=== PATIENT | female | born 1960 | race Caucasian/White ===

== ENCOUNTER 2017-02-16 11:24 | Inpatient (IN) | payer MEDICAID ==
[~2017-02-16] VITALS: Ht 165.1 cm; Wt 183.3 kg
[2017-02-16] MEDS ORDERED: SODIUM CHLORIDE 0.9% 1,000 ML IV ONE (12:17)
[2017-02-16] MEDS ORDERED: methylPREDNISolone SOD SUCC 125 MG/2 ML VL IV ONE (12:30)
[2017-02-16] MEDS ORDERED: IPRATROPIUM BROM 0.5 MG/2.5ML INH SOL HHN ONE (12:30)
[2017-02-16] MEDS ORDERED: LEVOFLOXACIN 500MG 100 ML IV ONE (12:30)
[2017-02-16] MEDS ORDERED: ALBUTEROL SULF 2.5 MG/0.5ML(0.5%) NEB SOLN HHN ONE (12:30)
[2017-02-16 13:09] LABS: Basophils # (auto) 0.1 uL; Basophils % (auto) 0.5 % (0.0-2.0); Eosinophils # (auto) 0 uL; Eosinophils % (auto) 0.2 % (0.0-7.0); Hematocrit 41.5 % (36.0-46.0); Hemoglobin 13.9 g/dL (12.2-16.2); Lymphocytes # (auto) 0.3 uL; Lymphocytes % (auto) 2.8 % (10.0-50.0); Mean Corpuscular Hemoglobin 30.5 pg (28.0-32.0); Mean Corpuscular Hgb Conc. 33.6 g/dL (32.0-36.0); Mean Corpuscular Volume 90.9 fL (80.0-100.0); Monocytes # (auto) 0.9 uL; Neutrophils # (auto) 9.7 uL; Neutrophils % (auto) 88.5 % (37.0-80.0); Platelet Count (auto) 300 10^3/uL (140-450); Red Blood Cells 4.56 10^6/uL (4.0-5.20); Red Cell Distribution Width 13.9 % (11.8-14.3); White Blood Cell 10.9 10^3/uL (4.4-10.8)
[2017-02-16 13:14] LABS: Albumin 3.8 g/dL (3.4-5.0); BUN/Creatinine Ratio 14.4; Bilirubin, Total 0.5 mg/dL (0.2-1.0); Calcium 8.8 mg/dL (8.5-10.1); Potassium 3.6 mmol/L (3.5-5.1); Total Protein 7.9 g/dL (6.4-8.2)
[2017-02-16] MEDS ORDERED: NAPR500T31 PO (14:12)
[2017-02-16] MEDS ORDERED: LEVO150T68 PO (14:12)
[2017-02-16] MEDS ORDERED: ASPI81CH43 PO (14:12)
[2017-02-16] MEDS ORDERED: LISI-706 PO (14:12)
[2017-02-16] MEDS ORDERED: ATOR40TA52 PO (14:12)
[2017-02-16] MEDS ORDERED: FURO40TA PO (14:13)
[2017-02-16] MEDS ORDERED: POTA10TA34 PO (14:13)
[2017-02-16] MEDS ORDERED: CYCL1TAB18 PO (14:13)
[2017-02-16] MEDS ORDERED: OSELTAMIVIR 75 MG CAP PO ONE (14:15)
[2017-02-16] MEDS ORDERED: LORazepam 0.5 MG TAB PO PRN (14:15)
[2017-02-16] MEDS ORDERED: LACTULOSE 20Gm/30ML SOLN PO PRN (14:15)
[2017-02-16] MEDS ORDERED: TEMAZEPAM 15 MG CAP PO PRN (14:15)
[2017-02-16] MEDS ORDERED: MORPHINE SULF INJ 2 MG/ML SYRINGE 1ML IV PRN (14:15)
[2017-02-16] MEDS ORDERED: ACETAMINOPHEN 500 MG TAB PO PRN (14:15)
[2017-02-16] MEDS ORDERED: NITROGLYCERIN 0.4 MG SL TAB SL PRN (14:15)
[2017-02-16] MEDS ORDERED: ALBUTEROL SULF 2.5 MG/0.5ML(0.5%) NEB SOLN NEB PRN (14:15)
[2017-02-16] MEDS ORDERED: MORPHINE SULFATE 4 MG/ML SYR/VIAL IV PRN (14:15)
[2017-02-16] MEDS ORDERED: PROMETHAZINE HCL 25 MG/ML 1ML IV PRN (14:15)
[2017-02-16] MEDS ORDERED: HYDROcodone-ACET 5/325MG TAB PO PRN (14:15)
[2017-02-16] MEDS: METOPROLOL TARTRATE 25 MG TAB PO SCH ×2 (14:54→23:05)
[2017-02-16] MEDS: SODIUM CHLORIDE 0.9% 1,000 ML IV SCH (14:54)
[2017-02-16] MEDS: ENOXAPARIN SOD 40 MG/0.4 ML SYRINGE SC SCH (14:55)
[2017-02-16] MEDS: ALBUTEROL SULF 2.5 MG/0.5ML(0.5%) NEB SOLN NEB SCH (18:00)
[2017-02-16] MEDS: IPRATROPIUM BROM 0.5 MG/2.5ML INH SOL NEB SCH (18:00)
[2017-02-16 22:00] VITALS: BP 133/65
[2017-02-16] MEDS: OSELTAMIVIR 75 MG CAP PO SCH (22:10)
[2017-02-16] MEDS: FAMOTIDINE 20 MG TAB PO SCH (22:10)
[2017-02-17] MEDS: ALBUTEROL SULF 2.5 MG/0.5ML(0.5%) NEB SOLN NEB SCH ×4 (01:04→20:07)
[2017-02-17] MEDS: IPRATROPIUM BROM 0.5 MG/2.5ML INH SOL NEB SCH ×4 (01:04→20:07)
[2017-02-17 03:16] VITALS: BP 133/65
[2017-02-17 04:40] VITALS: BP 104/62
[2017-02-17] MEDS: SODIUM CHLORIDE 0.9% 1,000 ML IV SCH (05:00)
[2017-02-17 08:01] LABS: Basophils # (auto) 0 uL; Basophils % (auto) 0.1 % (0.0-2.0); Eosinophils # (auto) 0 uL; Hematocrit 39.9 % (36.0-46.0); Hemoglobin 13.4 g/dL (12.2-16.2); Lymphocytes # (auto) 0.4 uL; Mean Corpuscular Hemoglobin 30.6 pg (28.0-32.0); Mean Corpuscular Hgb Conc. 33.5 g/dL (32.0-36.0); Mean Corpuscular Volume 91.4 fL (80.0-100.0); Monocytes # (auto) 0.2 uL; Monocytes % (auto) 2.6 % (0.0-12.0); Neutrophils # (auto) 7.7 uL; Neutrophils % (auto) 92.3 % (37.0-80.0); Platelet Count (auto) 271 10^3/uL (140-450); Red Blood Cells 4.37 10^6/uL (4.0-5.20); White Blood Cell 8.3 10^3/uL (4.4-10.8)
[2017-02-17 08:27] LABS: Albumin 3.4 g/dL (3.4-5.0); BUN/Creatinine Ratio 22.3; Bilirubin, Total 0.6 mg/dL (0.2-1.0); Calcium 8.9 mg/dL (8.5-10.1); Potassium 4.1 mmol/L (3.5-5.1); Total Protein 7.7 g/dL (6.4-8.2)
[2017-02-17 09:34] VITALS: BP 133/72
[2017-02-17] MEDS: OSELTAMIVIR 75 MG CAP PO SCH ×2 (10:03→21:38)
[2017-02-17] MEDS: ENOXAPARIN SOD 40 MG/0.4 ML SYRINGE SC SCH (10:03)
[2017-02-17] MEDS: METOPROLOL TARTRATE 25 MG TAB PO SCH ×2 (10:03→21:39)
[2017-02-17] MEDS: FAMOTIDINE 20 MG TAB PO SCH ×2 (10:03→21:38)
[2017-02-17] MEDS ORDERED: ASPirin 81 mg TAB PO ONE (11:15)
[2017-02-17] MEDS ORDERED: LEVOTHYROXINE SODIUM 50 MCG TAB PO ONE (11:15)
[2017-02-17] MEDS ORDERED: CYCLOBENZAPRINE HCL 10 MG TAB PO PRN (11:15)
[2017-02-17] MEDS: methylPREDNISolone SOD SUCC 40 MG/ML VL IV SCH ×3 (12:25→23:56)
[2017-02-17] MEDS: AZITHROMYCIN 500MG/ 250ML 250 ML IV SCH (15:48)
[2017-02-17 17:00] VITALS: BP 152/75
[2017-02-17] MEDS: ATORVASTATIN 20 MG TAB PO SCH (21:38)
[2017-02-17 22:00] VITALS: BP 126/72
[2017-02-18] MEDS: ALBUTEROL SULF 2.5 MG/0.5ML(0.5%) NEB SOLN NEB SCH ×4 (01:38→20:24)
[2017-02-18] MEDS: IPRATROPIUM BROM 0.5 MG/2.5ML INH SOL NEB SCH ×4 (01:38→20:24)
[2017-02-18 05:30] VITALS: BP 157/76
[2017-02-18] MEDS: LEVOTHYROXINE SODIUM 50 MCG TAB PO SCH (05:58)
[2017-02-18 08:00] VITALS: BP 126/57
[2017-02-18] MEDS ORDERED: ASPirin 81 mg TAB PO SCH (10:00)
[2017-02-18] MEDS: ASPirin 81 mg TAB PO SCH (10:31)
[2017-02-18] MEDS: AZITHROMYCIN 500MG/ 250ML 250 ML IV SCH (10:31)
[2017-02-18] MEDS: FAMOTIDINE 20 MG TAB PO SCH ×2 (10:33→21:44)
[2017-02-18] MEDS: METOPROLOL TARTRATE 25 MG TAB PO SCH ×2 (10:33→21:45)
[2017-02-18] MEDS: OSELTAMIVIR 75 MG CAP PO SCH ×2 (10:33→21:44)
[2017-02-18 12:00] VITALS: BP 139/73
[2017-02-18] MEDS: methylPREDNISolone SOD SUCC 40 MG/ML VL IV SCH (12:26)
[2017-02-18 17:07] VITALS: BP 129/63
[2017-02-18] MEDS: ATORVASTATIN 20 MG TAB PO SCH (21:45)
[2017-02-18 22:00] VITALS: BP 147/82
[2017-02-19] MEDS: methylPREDNISolone SOD SUCC 40 MG/ML VL IV SCH ×3 (00:21→23:35)
[2017-02-19] MEDS: ALBUTEROL SULF 2.5 MG/0.5ML(0.5%) NEB SOLN NEB SCH ×4 (01:22→19:46)
[2017-02-19] MEDS: IPRATROPIUM BROM 0.5 MG/2.5ML INH SOL NEB SCH ×4 (01:22→19:46)
[2017-02-19 05:00] VITALS: BP 166/86
[2017-02-19] MEDS: LEVOTHYROXINE SODIUM 50 MCG TAB PO SCH (06:06)
[2017-02-19 09:00] VITALS: BP 134/75
[2017-02-19] MEDS: ASPirin 81 mg TAB PO SCH (10:33)
[2017-02-19] MEDS: AZITHROMYCIN 500MG/ 250ML 250 ML IV SCH (10:33)
[2017-02-19] MEDS: FAMOTIDINE 20 MG TAB PO SCH ×2 (10:33→21:53)
[2017-02-19] MEDS: METOPROLOL TARTRATE 25 MG TAB PO SCH ×2 (10:34→21:53)
[2017-02-19] MEDS: OSELTAMIVIR 75 MG CAP PO SCH ×2 (10:34→21:54)
[2017-02-19 13:00] VITALS: BP 143/65
[2017-02-19] MEDS ORDERED: PROMETHAZINE W/CODEINE 5 ML ORAL SYRUP PO PRN (14:45)
[2017-02-19] MEDS: LEVOFLOXACIN 500MG 100 ML IV SCH (16:23)
[2017-02-19 17:00] VITALS: BP 145/65
[2017-02-19] MEDS: BUDESONIDE (INHALATION) 0.5 MG/2 ML NEB NEB SCH (19:46)
[2017-02-19] MEDS: ATORVASTATIN 20 MG TAB PO SCH (21:53)
[2017-02-19 22:00] VITALS: BP 158/86
[2017-02-20] MEDS: IPRATROPIUM BROM 0.5 MG/2.5ML INH SOL NEB SCH ×3 (00:57→12:24)
[2017-02-20] MEDS: ALBUTEROL SULF 2.5 MG/0.5ML(0.5%) NEB SOLN NEB SCH ×3 (00:58→12:24)
[2017-02-20 05:00] VITALS: BP 150/65
[2017-02-20] MEDS: LEVOTHYROXINE SODIUM 50 MCG TAB PO SCH (06:44)
[2017-02-20 06:51] LABS: Basophils # (auto) 0 uL; Basophils % (auto) 0.1 % (0.0-2.0); Eosinophils # (auto) 0 uL; Hematocrit 40.4 % (36.0-46.0); Hemoglobin 13.7 g/dL (12.2-16.2); Lymphocytes # (auto) 1.2 uL; Lymphocytes % (auto) 15.9 % (10.0-50.0); Mean Corpuscular Hgb Conc. 33.9 g/dL (32.0-36.0); Mean Corpuscular Volume 91.5 fL (80.0-100.0); Monocytes # (auto) 0.6 uL; Neutrophils # (auto) 5.8 uL; Platelet Count (auto) 303 10^3/uL (140-450); Red Blood Cells 4.42 10^6/uL (4.0-5.20); Red Cell Distribution Width 13.7 % (11.8-14.3); White Blood Cell 7.6 10^3/uL (4.4-10.8)
[2017-02-20] MEDS: BUDESONIDE (INHALATION) 0.5 MG/2 ML NEB NEB SCH (07:06)
[2017-02-20 07:07] LABS: BUN/Creatinine Ratio 28.9; Calcium 8.7 mg/dL (8.5-10.1); Potassium 4.4 mmol/L (3.5-5.1)
[2017-02-20 09:00] VITALS: BP 139/79
[2017-02-20] MEDS: METOPROLOL TARTRATE 25 MG TAB PO SCH (10:08)
[2017-02-20] MEDS: LEVOFLOXACIN 500MG 100 ML IV SCH (10:08)
[2017-02-20] MEDS: OSELTAMIVIR 75 MG CAP PO SCH (10:09)
[2017-02-20] MEDS: FAMOTIDINE 20 MG TAB PO SCH (10:10)
[2017-02-20] MEDS: ASPirin 81 mg TAB PO SCH (10:10)
[2017-02-20] MEDS: methylPREDNISolone SOD SUCC 40 MG/ML VL IV SCH (12:09)
[2017-02-20 12:27] VITALS: BP 120/68
[2017-02-20 13:00] VITALS: BP 130/67
[2017-02-20 16:45] VITALS: BP 130/67
[2017-02-20 16:51] VITALS: BP 141/67
[2017-02-21] MEDS ORDERED: LEVOFLOXACIN 500 MG TAB PO SCH (10:00)
== END 2017-02-20 17:10 | disposition home or self-care (01) | DRG 140 ==
LOC: ER 11:24 → TELE 11:25 → TELE-WESTW 20:10 → WEST WING 02-19 18:04
PROVIDERS: ADMIT Internal Medicine; ATTEND Internal Medicine
DX: J44.0 Chronic obstructive pulmonary disease with (acute) lower respiratory infection (principal); J96.00 Acute respiratory failure, unspecified whether with hypoxia or hypercapnia; J11.00 Influenza due to unidentified influenza virus with unspecified type of pneumonia; I11.0 Hypertensive heart disease with heart failure; I50.9 Heart failure, unspecified; I48.91 Unspecified atrial fibrillation; Z68.44 Body mass index [BMI] 60.0-69.9, adult; J44.1 Chronic obstructive pulmonary disease with (acute) exacerbation; E03.9 Hypothyroidism, unspecified; I25.2 Old myocardial infarction; E66.01 Morbid (severe) obesity due to excess calories; E78.5 Hyperlipidemia, unspecified; G47.30 Sleep apnea, unspecified; J45.909 Unspecified asthma, uncomplicated; Z88.8 Allergy status to other drugs, medicaments and biological substances; Z88.1 Allergy status to other antibiotic agents; Z82.3 Family history of stroke; Z82.49 Family history of ischemic heart disease and other diseases of the circulatory system; Z83.3 Family history of diabetes mellitus; Z79.82 Long term (current) use of aspirin; Z79.899 Other long term (current) drug therapy
CPT/HCPCS: 36415; 71046; 80048; 80053; 80061; 80307; 82550; 83605; 83880; 84443; 84484; 85025; 85379; 85652; 86141; 87040; 87070; 87205; 87400; 93005; 93306; 94640; 94644; 96365; 96372; 96375; J1956